=== PATIENT | male | born 1970 | race Caucasian/White ===

== ENCOUNTER → 2022-10-09 08:34 | Outpatient (BNVA) | payer MEDICARE, SELFPAY | PROVIDERS: PCP Family Medicine; Referring Provider Family Medicine; Visit Provider Specialist | DX: M48.02 Spinal stenosis, cervical region (principal); G24.8 Other dystonia | CPT/HCPCS: 99204 ==

== ENCOUNTER → 2023-07-31 14:21 | Outpatient (BNVA) | payer MEDICARE, SELFPAY | PROVIDERS: PCP Family Medicine; Visit Provider Family Medicine | DX: M10.9 Gout, unspecified (principal); E78.5 Hyperlipidemia, unspecified; M48.02 Spinal stenosis, cervical region; M54.2 Cervicalgia | CPT/HCPCS: 80053; 84550; 85025 ==

== ENCOUNTER → 2023-10-07 09:26 | Outpatient (BNVA) | payer MEDICARE, SELFPAY | PROVIDERS: PCP Family Medicine; Visit Provider Specialist | DX: G82.50 Quadriplegia, unspecified (principal); M17.10 Unilateral primary osteoarthritis, unspecified knee; M48.02 Spinal stenosis, cervical region | CPT/HCPCS: 99214 ==

== ENCOUNTER 2023-11-11 12:01 | Outpatient (CLI) | payer MEDICARE, SELFPAY ==
--- NOTE | 2023-11-11 16:45 | MR_ITS ---
WS: [id number] MRI CERVICAL SPINE NONCONTRAST HISTORY: G82.50 - Quadriplegia, unspecified COMPARISON: None available. Technique: Multiplanar, multisequence noncontrast imaging of the cervical spine. Posterior and anterior cervical fusion hardware extends from C5-C7. Short segment syrinx centered at the C6 level extends over a length of 2.7 cm. There are 2 adjacent s mall fluid collections along the cervical cord. This is best seen on the axial imaging. Otherwise the re is no cord atrophy or enlargement. Large posterior laminectomy defects at C5, C6 and C7. Craniocervical junction, C1 and C2 relationship, odontoid process and soft tissues are normal. C2-C3: Normal. C3-C4: Very shallow central disc protrusion. Small foraminal osteophytes. No high-grade stenosis. C4-C5: Mild osteophytic ridging. Ligamentum flavum hypertrophy and facet arthritis. There is mild mode rowing of the central canal at the C4-5 level on the RIGHT. No high-grade stenosis. C5-C6: No stenosis. C6-C7: No high-grade stenosis. C7-T1: Normal. Paraspinal soft tissue are normal. IMPRESSION: 1. Status post anterior and posterior cervical fusion hardware. Large laminectomy defects are noted a t C5, C6 and C7. 2. Short segment syrinx centered at C6 extends over a length of 2.7 cm. 3. Mild central stenosis at C4-5 greatest to the LEFT of midline.
== END 2023-11-11 12:02 | disposition home or self-care (01) ==
LOC: RAD 12:01
PROVIDERS: PCP Family Medicine; Visit Provider Specialist
DX: G82.50 Quadriplegia, unspecified (principal); M48.02 Spinal stenosis, cervical region; Z98.1 Arthrodesis status
CPT/HCPCS: 72141

== ENCOUNTER → 2023-12-26 09:11 | Outpatient (BNVA) | payer MEDICARE, SELFPAY | PROVIDERS: PCP Family Medicine; Visit Provider Physician Assistant | DX: M17.11 Unilateral primary osteoarthritis, right knee (principal) | CPT/HCPCS: 20610; 73560; 73565; 99203; J3301 ==

== ENCOUNTER → 2024-03-19 09:12 | Outpatient (BNVA) | payer MEDICARE, SELFPAY | PROVIDERS: Visit Provider Family Medicine | DX: M54.2 Cervicalgia (principal); M48.02 Spinal stenosis, cervical region; E78.5 Hyperlipidemia, unspecified; Z79.899 Other long term (current) drug therapy | CPT/HCPCS: 80053; 80061; 84439; 84443; 84550; 85025 ==

== ENCOUNTER → 2024-04-05 08:47 | Outpatient (BNVA) | payer MEDICARE, SELFPAY | PROVIDERS: PCP Family Medicine; Visit Provider Family Medicine | DX: R23.2 Flushing (principal); E78.5 Hyperlipidemia, unspecified | CPT/HCPCS: 82040; 84270; 84403 ==

== ENCOUNTER → 2024-06-18 09:15 | Outpatient (BNVA) | payer MEDICARE, SELFPAY | PROVIDERS: PCP Family Medicine; Visit Provider Family Medicine | DX: R79.89 Other specified abnormal findings of blood chemistry (principal) | CPT/HCPCS: 82040; 84270; 84403 ==

== ENCOUNTER → 2024-08-24 10:30 | Outpatient (BNVA) | payer MEDICARE, SELFPAY | PROVIDERS: PCP Family Medicine; Visit Provider Family Medicine | DX: Z12.5 Encounter for screening for malignant neoplasm of prostate (principal); R60.0 Localized edema; M79.89 Other specified soft tissue disorders; R06.00 Dyspnea, unspecified; E78.5 Hyperlipidemia, unspecified | CPT/HCPCS: 80053; 81003; 82043; 82533; 83880; 84443; 85027; 85651; 86140; 87086; G0103 ==

== ENCOUNTER → 2024-08-27 08:25 | Outpatient (BNVA) | payer MEDICARE, SELFPAY | PROVIDERS: PCP Family Medicine; Visit Provider Physician Assistant | DX: M25.561 Pain in right knee (principal); M25.562 Pain in left knee; M17.0 Bilateral primary osteoarthritis of knee | CPT/HCPCS: 20610; 73560; 73565; 99213; J3301 ==

== ENCOUNTER → 2024-09-02 10:08 | Outpatient (BNVA) | payer MEDICARE, SELFPAY | PROVIDERS: PCP Family Medicine; Visit Provider Family Medicine | DX: Z01.89 Encounter for other specified special examinations (principal) | CPT/HCPCS: 87077 ==

== ENCOUNTER 2024-11-11 12:37 | Outpatient (CLI) | payer MEDICARE, SELFPAY ==
--- NOTE | 2024-11-11 12:15 | USCV_ITS ---
JaneyKobe meeks Age: 54 Gender: M : 1970 Exam Date: 11/11/2024 12:56 Ordering Phys: Chano Maharaj DO Technologist: KAYCEE [place] [facility] [place]: cp BP: 138 / 90 HR: 67 Rhythm: Sinus Technical Quality: Adequate MEASUREMENTS (Male / Female) Normal Values 2D ECHO LV Diastolic Diameter PLAX 4.3 cm 4.2 - 5.9 / 3.9 - 5.3 cm IVS Diastolic Thickness 1.2 cm 0.6 - 1.0 / 0.6 - 0.9 cm IVS Systolic Thickness 1.8 cm LVPW Diastolic Thickness 2.1 cm 0.6 - 1.0 / 0.6 - 0.9 cm LVPW Systolic Thickness 2.6 cm LVOT Diameter 2.0 cm LV Ejection Fraction 2D Teich 59.3 % LV Ejection Fraction MOD 4C 55.6 % LV Ejection Fraction MOD 2C 58.1 % LV Ejection Fraction 2C AL 58.6 % LA Diameter 3.0 cm RA Systolic Volume 4C AL 20.7 ml RA Systolic Volume 4C MOD 20.2 ml LA Sys Volume AL 33.5 cm cubed LA Sys Volume Index AL 14.7 cm cubed/m squared Aorta at Sinotubular Diameter 2.0 cm IVC Diameter 2.1 cm M-MODE LA Ao Ratio MM 1.4 AV Cusp Separation MM 1.9 cm DOPPLER AV Peak Velocity 171.0 cm/s LVOT Peak Velocity 126.0 cm/s AV Area Cont Eq vti 2.2 cm squared AV Area Cont Eq pk 2.3 cm squared MV Peak Velocity 96.0 cm/s MV Area PHT 3.4 cm squared Mitral E to A Ratio 1.1 TR Peak Velocity 134.0 cm/s TR Peak Gradient 7.2 mmHg TR Mean Velocity 104.0 cm/s TR Mean Gradient 4.9 mmHg TR Velocity Time Integral 37.6 cm TV Peak E Velocity 59.0 cm/s PV Peak Velocity 98.0 cm/s FINDINGS Left Ventricle Normal left ventricular size and systolic function, EF 57%.mild left ventricular hypertrophy. No regional wall motion abnormalities. Right Ventricle The right ventricle is normal in size and function. Right Atrium The right atrium is normal in size. Left Atrium The left atrium is normal in size. Mitral Valve Thickened mitral valve. Aortic Valve Thickened aortic valve. Peak velocity 1.8 m/s. Features of aortic valve sclerosis Tricuspid Valve No gross abnormalities noted Pulmonic Valve Pulmonic valve not well visualized. Pericardium Normal pericardium without effusion. Aorta Normal ascending aorta dimension. IVC Normal inferior vena cava. CONCLUSIONS Normal left ventricular size and systolic function, EF 57%.mild left ventricular hypertrophy. No regional wall motion abnormalities. Thickened mitral valve. Thickened aortic valve. Peak velocity 1.8 m/s. Features of aortic valve sclerosis. There is no pericardial effusion. There are no intracardiac masses. No similar previous studies are available for comparison Dr Radha Yeh MD [facility] (Electronically Signed) Final Date: 11 November 2024 22:08 S
--- NOTE | 2024-11-11 12:42 | XR_ITS ---
WS: [id number] Chest 2 views, 11/11/2024 Clinical Data: I50.9 - Heart failure, unspecified Comparison: None. Findings: No nodules, masses or effusions are seen. The heart is normal. The pulmonary vascularity is not increased. No pneumonia or pneumothorax is seen. The diaphragms are flattened. There is an anter ior cervical disc fusion and a posterior cervical fusion. XR/XR chest 2V* [id number] Impression: Hyperinflation.
[2024-11-11 14:07] LABS: Alanine Aminotransferase 10 U/L (0-41); Albumin Level 4.3 g/dL (3.5-5.2); Alkaline Phosphatase 101 U/L (40-130); Anion Gap 10.4 (5-19); Aspartate Amino Transferase 20 U/L (0-40); Blood Urea Nitrogen 12 mg/dL (6-20); Calcium 9.8 mg/dL (8.5-10.5); Carbon Dioxide 33 mmol/L (22-29); Chloride 99 mmol/L (98-107); Ferritin 54 ng/mL (30-400); Globulin 2.9 g/dL (1.3-4.6); Glomerular Filtration Rate 116.7 mL/min (90-130); Glucose 100 mg/dL (65-115); Iron 97 ug/dL (59-158); Magnesium 1.9 mg/dL (1.7-2.3); NT Pro B Type Natriuretic Pept < 36 pg/mL (0-125); Osmolality Calculated 286 mOsm/kg (285-295); Potassium 4.4 mmol/L (3.5-5.1); Sodium 138 mmol/L (136-145); Total Bilirubin 0.4 mg/dL (0.15-1.2); Total Protein 7.2 g/dL (6.6-8.7); Transferrin 299 mg/dL (200-360)
== END 2024-11-11 12:38 | disposition home or self-care (01) ==
PROVIDERS: PCP Family Medicine; Visit Provider Family Medicine
DX: I50.9 Heart failure, unspecified (principal); I51.9 Heart disease, unspecified; J98.4 Other disorders of lung; I34.89 Other nonrheumatic mitral valve disorders; I70.0 Atherosclerosis of aorta; I49.1 Atrial premature depolarization; M43.22 Fusion of spine, cervical region; M79.89 Other specified soft tissue disorders; R06.02 Shortness of breath; R06.09 Other forms of dyspnea
CPT/HCPCS: 36415; 71046; 80053; 82728; 83540; 83735; 83880; 84466; 93005; 93306

== ENCOUNTER → 2024-12-23 09:02 | Outpatient (BNVA) | payer MEDICARE, SELFPAY | PROVIDERS: PCP Family Medicine; Visit Provider Physician Assistant | DX: M17.0 Bilateral primary osteoarthritis of knee (principal) | CPT/HCPCS: 20610; 99213; J3301 ==

== ENCOUNTER → 2024-12-31 15:06 | Outpatient (BNVA) | payer MEDICARE, SELFPAY | PROVIDERS: PCP Family Medicine; Visit Provider Nurse Practitioner Family | DX: R05.9 Cough, unspecified (principal) | CPT/HCPCS: 87400; 87420; 87426 ==

== ENCOUNTER → 2025-04-11 09:57 | Outpatient (BNVA) | payer MEDICARE, SELFPAY | PROVIDERS: PCP Family Medicine; Visit Provider Physician Assistant | DX: M17.0 Bilateral primary osteoarthritis of knee (principal) | CPT/HCPCS: 20610; 99213; J3301; J9999 ==

== ENCOUNTER → 2025-07-13 08:15 | Outpatient (BNVA) | payer MEDICARE, SELFPAY | PROVIDERS: PCP Family Medicine; Visit Provider Physician Assistant | DX: M17.0 Bilateral primary osteoarthritis of knee (principal) | CPT/HCPCS: 20610; 99213; J3301; J9999 ==

== ENCOUNTER → 2025-11-09 08:16 | Outpatient (BNVA) | payer MEDICARE, SELFPAY | PROVIDERS: PCP Family Medicine; Visit Provider Physician Assistant | DX: M17.0 Bilateral primary osteoarthritis of knee (principal) | CPT/HCPCS: 20610; 99213; J3301; J9999 ==